=== PATIENT | male | born 1950 | race Caucasian/White ===

== ENCOUNTER 2022-08-15 09:38 | Outpatient (CLI) | payer MEDICARE, SELFPAY ==
--- NOTE | 2022-08-15 10:29 | ECG_ITS ---
Measurements Intervals [place] Rate: 99 P: 58 NC: 152 QRS: 1 QRSD: 91 T: 44 QT: 352 QTc: 452 Interpretive Statements SINUS RHYTHM BASELINE WANDER- AVF, V4 NORMAL ECG NO PREVIOUS ECG AVAILABLE FOR COMPARISON Electronically Signed On 08-15-2022 10:50:47 ASSOCIATE PROFESSOR OF VIOLIN by Krish Hedrick D.O.
[2022-08-15 10:43] LABS: Hematocrit 42.8 % (42.0-52.0); Hemoglobin 14.1 g/dL (14.0-18.0)
[2022-08-15 10:53] LABS: Urine Cotinine NEGATIVE
[2022-08-15 10:59] LABS: Albumin Level 4.5 g/dL (3.5-5.1); Estimated Glomerular Filt Rate > 60; Glucose 106 mg/dL (65-110)
[2022-08-16 13:37] LABS: Hemoglobin A1C 5.7 % (<5.7)
== END 2022-08-15 09:39 | disposition home or self-care (01) ==
PROVIDERS: PCP Family Medicine Adolescent Medicine; Visit Provider Orthopaedic Surgery
DX: M16.12 Unilateral primary osteoarthritis, left hip (principal); E78.2 Mixed hyperlipidemia
CPT/HCPCS: 80307; 82040; 82565; 82947; 83036; 85014; 85018; 93005

== ENCOUNTER 2022-09-19 13:31 | Outpatient (CLI) | payer MEDICARE, SELFPAY ==
[2022-09-19 15:06] LABS: Basophils Percent Auto 0.5 % (0.2-1.2); Eosinophils Absolute Auto 0.1 K/mm3 (0-0.3); Eosinophils Percent Auto 1.4 % (0-4.4); Hematocrit 42.1 % (42.0-52.0); Hemoglobin 14.3 g/dL (14.0-18.0); Immature Granulocyte Absolute 0.02 K/mm3 (0.00-0.031); Immature Granulocyte Percent A 0.3 % (0-0.5); Lymphocytes Percent Auto 15.8 % (18.3-44.2); Mean Corpuscular Hemoglobin 30.2 pg (26-34); Mean Platelet Volume 9.4 fl (7.4-10.4); Monocytes Absolute Auto 0.9 K/mm3 (0.1-0.6); Monocytes Percent Auto 14.5 % (2.6-8.5); Neutrophils Absolute Auto 4.3 K/mm3 (1.3-6.7); Neutrophils Percent Auto 67.5 % (45.5-73.1); Platelet Count Result 253 k/mm3 (150-375); Red Blood Count 4.73 M/mm3 (4.6-6.20); Red Cell Distribution Width 14.6 % (11.5-14.5); White Blood Count 6.3 K/mm3 (4.5-10.0)
== END 2022-09-19 13:32 | disposition home or self-care (01) ==
PROVIDERS: PCP Family Medicine Adolescent Medicine; Visit Provider Orthopaedic Surgery
DX: M16.12 Unilateral primary osteoarthritis, left hip (principal); Z01.818 Encounter for other preprocedural examination
CPT/HCPCS: 36415; 85025; 87081

== ENCOUNTER 2022-10-08 00:34 | Day surgery (SDC) | payer MEDICARE, SELFPAY ==
[2022-09-19 13:45] VITALS: BMI 27.9
--- NOTE | 2022-09-19 14:17 | PC.NURSE ---
Report to the Outpatient Waiting Room, entrance under the green pavilion located off [facility], at time _1000 on date _10/08/22 . Planned Procedure Time: __1200 . Time changes happen often and if your time is changed the preop area will call you the afternoon before. - You and your visitor will be asked to self-screen and do not enter if you have any COVID symptoms. - Only one visitor is requested with a max of two and NO children visitors are allowed at this time. - The patient visitor may be requested to leave or wait in car when not with patient due to distancing restrictions. - A mask is optional within the hospital at this time. Patients may have clear liquids (water, carbonated beverages, clear teas, apple juice) until 3 hours prior to surgery with a maximum of 20 ounces. - No food from midnight until time of surgery - Infants may have breast milk until 4 hours before surgery, infant formula 6 hours prior to surgery. - Children will be allowed to drink immediately following surgery. If applicable, please bring a bottle or sippy cup to assist with drinking. Juice, water, soda, and popsicles are readily available. For infants on formula, please bring formula the day of surgery. Pacifiers are allowed. Take the following medications with a SIP of water the morning of surgery: NONE DO NOT STOP ANY OF YOUR OTHER PRESCRIPTION MEDICATIONS PRIOR TO SURGERY ?EXCEPT THE FOLLOWING Medications to discontinue per physician __PT STATES HOLD ALL VITAMINS/SUPPLEMENTS 7 DAYS PRE OP PER DR DANIELS. LAST DOSE 09/30/22_ Please no make-up, nail vietnamese, hairspray, perfume, deodorant, or body powder the day of surgery. No jewelry (including any body piercings) or valuables the day of surgery, leave them at home. Please take a shower or bath the night before, or the morning of, surgery with an antibacterial soap. Wear comfortable, loose fitting clothing. Children are encouraged to wear pajamas. - Jewelry must be removed prior to entering the operating room. Rings and piercings that are not removed may be cut off. - The hospital will not accept responsibility for valuables. - Please leave all valuables, including medications, at home the day of surgery. If you are going home after surgery, a licensed racing car driver must drive you home. - NO public transportation without another adult if you receive anesthesia. - We recommend that an adult stay with you for 24 hours following discharge. - We also recommend that you do not drive, make important decision, drink alcoholic beverages, or take any drugs that were not prescribed by your health care provider for at least 24 hours after your discharge time. Follow any additional instructions given to you from your surgeon. If you or anyone in your household have experienced Covid symptoms in the past week, please notify your surgeon or the nurse liaison at the phone number below for possible testing. VERBAL AND WRITTEN instructions given to __PATIENT and asked if any additional questions and then verbalized understanding. Patient advised to call surgeon office or pre surgery nurse liaison [phone] if any additional questions.
[2022-09-19 14:36] VITALS: BP 142/88; PULSE 99; RESP 18; TEMP 36.7; O2SAT 97
[2022-10-08] VITALS (13 sets, daily range): BP systolic 108–150; BP diastolic 4–86; PULSE 93–118; RESP 10–20; TEMP 36.2–36.8; O2SAT 93–100
--- NOTE | ~2022-10-08 | XR_ITS ---
EXAMINATION: XR hip LT min 2V DATE: 10/08/2022 15:29 INDICATION: Total left hip arthroplasty. Postop. TECHNIQUE: 2 views of left hip were obtained. COMPARISON: Left hip radiographs 08/15/2022 FINDINGS: There is a total left hip arthroplasty in near-anatomic alignment. No fracture. There is ga s in the soft tissues, consistent with recent surgery. IMPRESSION: 1. Total left hip arthroplasty in near-anatomic alignment. Reviewed, dictated and finalized at location A.
[2022-10-08] MEDS: ACETAMINOPHEN 500 MG TABLET 1000 MG PO (10:18)
[2022-10-08] MEDS: LACTATED RINGERS 1,000 ML 30 ML IV CONT ×2 (10:30→15:15)
[2022-10-08] MEDS: TRANEXAMIC ACID 1,000MG/ISO100 1,000 MG/100 ML BAG 200 MG IVPB (10:30)
--- NOTE | 2022-10-08 11:46 | WPDANESEPPF ---
Anes - Initial Pre Proc Eval Procedure: Operation Date: 10/08/22 12:00 Proposed Procedures p Left Total Hip Arthroplasty - Galileo Maynard MD Date/Time: 10/08/22 11:46 Surgeon: Galileo Maynard MD Pre Op Diagnosis: primary OA left hip Patient Data Age: 72 Gender: M Height: 1.78 m Weight: 87.3 kg Last Vital Signs Temp 36.7 C 10/08/22 10:42 Pulse 95 10/08/22 10:42 Resp 16 10/08/22 10:42 BP 145/78 H 10/08/22 10:42 Pulse Ox 99 10/08/22 10:42 O2 Del Method Room Air 10/08/22 10:42 Allergies Allergy/AdvReac Type Severity Reaction Status Date / Time No Known Allergies Allergy Verified 09/19/22 13:46 Home Medications Medication Instructions Recorded Confirmed Type atorvastatin 20 mg tablet 20 mg PO DAILY #90 tabs 07/17/22 10/08/22 Rx cholecalciferol (vitamin D3) 25 25 mcg PO DAILY 07/17/22 10/08/22 History mcg (1,000 unit) capsule omega-3 fatty acids 1,000 mg 1,000 mg PO DAILY 07/17/22 10/08/22 History capsule vitamin C 45 mg-zinc citrate 3.75 1 tablet PO DAILY 07/17/22 10/08/22 History mg-elderberry 50 mg chewable tablet (Dogecoin) pyridoxine (vitamin B6) 200 mg 200 mg PO DAILY 09/19/22 10/08/22 History tablet Patient hx anesthesia problems: none Family hx anesthesia problems: none Results Review: All pre-operative results and documents have been reviewed as part of the pre-operative evaluation. [facility] Past Medical History Medical History History of prostate cancer Idiopathic peripheral neuropathy Mixed hyperlipidemia Unilateral primary osteoarthritis, left hip Surgical History Surgical History History of left inguinal hernia repair History of prostatectomy (2017) History of tooth extraction Family History Family History Father Bone cancer Mother Acute myocardial infarction Social History Social History Smoking status: Never smoker Additional smoking assessment comments: DENIES ANY FORM OF TOBACCO USE Alcohol intake: never Substance use: never Lack of Transportation: No Lack of Food: Never True Current Housing: I Have Housing Concerned About Future Housing: No Difficulty Paying Gas/Electric Bills: No Difficulty Paying for Meds: No Currently Unemployed: No Education: Master's Degree or Higher Difficulty w/ Childcare or Family Care: No Living arrangements: alone Spiritual care concerns: No Anes - Eval Final PreProcedure Day of Procedure 10/08/22 11:46 Patient weight: overweight Heart: regular rate and rhythm Lungs: clear to auscultation Airway: Mallampati scale class II Neurological: alert and oriented Last oral intake: >/= 8 hours ASA classification: III Emergent: no Anesthetic plan: proceed Anesthesia type and monitoring: general ETT and standard monitoring Results Review: All pre-operative results and documents have been reviewed as part of the pre-operative evaluation. Informed Consent: The patient's anesthetic plan and its attendant risks and benefits were discussed with the patient/family/POA. Questions were solicited and answers provided to the satisfaction of the patient/family/POA.
--- NOTE | 2022-10-08 12:06 | WPDHPUPDATE1 ---
History and Physical Update Update Date/Time: 10/08/22 12:06 History and Physical has been reviewed, including an updated exam of the patient. There are NO changes in the patient's condition. Risks, benefits, and alternatives have been discussed and questions answered. Patient agrees to proceed with procedure.
[2022-10-08] MEDS: ceFAZolin 2 GM/D5W 50 ML 2 GM/50 ML BAG IVPB ×2 (12:33→20:21)
--- NOTE | 2022-10-08 15:20 | W.PM.PROC2 ---
Procedure Note - Detailed Date of Procedure 10/08/22 Pre-op Diagnosis primary OA left hip Post-op Diagnosis Same Procedure Performed Left Total Hip Arthroplasty Surgeon Galileo Maynard MD Records Analysis Manager Nelsy Harper PA-C Anesthesia General Findings Preoperatively the hip was contracted, shortened. Moderate flexion and external rotation. Motion was poor. The false acetabular floor was exposed and the acetabular center was medialized anatomically. After trialing the cup was anteverted another 5? and secured with 2 screws. 10 degree elevated liner placed at the 7 o'clock position. Osteophytes were removed circumferentially around the anterior inferior and posterior acetabulum. Impinging bone at the anterior trochanter was also excised. Overall size and implant choices were consistent with the preoperative templating. Partial limp correction was obtained by slight lengthening. Description of Procedure The patient was given preoperative antibiotics. A general anesthetic was administered. The patient was carefully placed in the lateral decubitus position on the PEG board. The shoulders and hips were carefully positioned for component and leg length positioning reference. The hip was prepped and draped in the usual sterile fashion. A longitudinal incision was created over the posterior aspect of the greater trochanter. Careful dissection was brought down through the deep fascia with electrocautery. A minimally invasive optimized posterior approach to the hip was performed. The short external rotators and capsule were taken down in an L-shaped capsulotomy. The tissue was tagged for later repair using number 2 high strength suture. The femoral neck was measured and taken in situ. The femoral head was removed. The acetabulum was carefully exposed. The inferior capsule was released. The labrum was resected. The acetabulum was sequentially reamed to one over the intended cup size. The cup was impacted into position with excellent press-fit. Typical anatomic landmarks, including the bony contact points as well as the inferior transverse acetabular ligament were used to confirm cup positioning with preoperative templating. Attention was turned to the femur, which was carefully exposed. The hip was reamed and then broached sequentially. Excellent press-fit was obtained with the broach. The hip was trialed. Measurements were utilized, including the lesser trochanter as well as the center of the femoral head and the tip of the trochanter, and excellent assessment of the offset and leg lengths were confirmed. The real component was impacted into position. Trialing confirmed appropriate leg length and offset with soft tissue balancing as well apparent feel of the leg, both at the knee and the heel. Soft tissues were assessed using the the iliotibial band. Reduction of the posterior capsule and external rotators were also used as a secondary assessment. The hip was copiously irrigated with pulsatile lavage antibiotic solution periodically throughout the procedure. The real components were then assembled and reduced. The hip was stable throughout typical maneuvers, including extension, external rotation to 70 degrees, the position of sleep as well as flexion to 90 degrees with internal rotation past 45 degrees. The shake test confirmed stability without impingement. Osteophytes were removed as necessary. The short external rotators and capsule were repaired back to the posterior trochanter through drill holes. The deep fascia was repaired with running number 2 Quill suture, followed by 0 Stratafix suture and 2-0 Stratafix suture in the dermis. Steri-Strips were placed on the skin, followed by a sterile silver occlusive dressing. There were no complications. Meticulous hemostasis was maintained with the AquaMantys device. The patient was brought to the recovery room in stable condition. There were no complications. Physician creative assistantNelsy
--- NOTE | 2022-10-08 15:30 | SUR.PHASEI ---
1525 xrays left hip done
[2022-10-08] MEDS: fentaNYL CITRATE INJ (*CRX) 100 MCG/2 ML VIAL 25 MCG IV PUSH ×2 (16:00→16:09)
--- NOTE | 2022-10-08 16:50 | ADMGEN ---
This patient, Rishabh Vázquez, was admitted to Medical Room 244-. Patient/family oriented to hospital policies and general routines including ID bracelet, bed and alarms, visiting hours, pain management, procedures, bathroom and other care routines, personal items, smoking policy, room service/diet, and visiting hours. Information on how to activate the Rapid Response Team has been discussed. Patient/Family are encouraged to report perceived risks to care and to ask questions if they do not understand what they are told or what they should do.
[2022-10-08] MEDS: ASPIRIN 81 MG ENTERIC TABLET PO (17:32)
[2022-10-08] MEDS: MELOXICAM 7.5 MG TABLET PO (17:32)
[2022-10-08] MEDS: FAMOTIDINE 20 MG TABLET PO (20:21)
[2022-10-09] MEDS: oxyCODONE HCL (*CRX) 5 MG TAB IR PO ×3 (02:32→13:22)
[2022-10-09] MEDS: ceFAZolin 2 GM/D5W 50 ML 2 GM/50 ML BAG IVPB ×2 (04:05→11:35)
[2022-10-09 04:21] VITALS: BP 104/57; PULSE 105; RESP 20; TEMP 36.4; O2SAT 95
[2022-10-09 06:57] LABS: Basophils Percent Auto 0.1 % (0.2-1.2); Hematocrit 32.6 % (42.0-52.0); Immature Granulocyte Absolute 0.09 K/mm3 (0.00-0.031); Immature Granulocyte Percent A 0.7 % (0-0.5); Lymphocytes Absolute Auto 0.74 K/mm3 (0.9-3.2); Lymphocytes Percent Auto 5.5 % (18.3-44.2); Mean Corpuscular HGB Conc 33.7 g/dl (32-36); Mean Corpuscular Hemoglobin 30.6 pg (26-34); Mean Corpuscular Volume 90.6 fl (80-100); Mean Platelet Volume 9.8 fl (7.4-10.4); Monocytes Absolute Auto 1.8 K/mm3 (0.1-0.6); Monocytes Percent Auto 13.2 % (2.6-8.5); Neutrophils Absolute Auto 10.9 K/mm3 (1.3-6.7); Neutrophils Percent Auto 80.5 % (45.5-73.1); Platelet Count Result 218 k/mm3 (150-375); Red Cell Distribution Width 14.6 % (11.5-14.5); White Blood Count 13.5 K/mm3 (4.5-10.0)
[2022-10-09 07:09] LABS: Anion Gap 3 mmol/L (8-16); Blood Urea Nitrogen 11 mg/dL (9-20); Calcium 8.2 mg/dL (8.4-10.2); Carbon Dioxide 26 mmol/L (22-30); Chloride 107 mmol/L (98-107); Estimated CRCL calculation 84 ml/min; Estimated Glomerular Filt Rate > 60; Glucose 128 mg/dL (65-110); Potassium 3.9 mmol/L (3.4-5.0); Sodium 136 mmol/L (137-145)
[2022-10-09 07:40] VITALS: RESP 18; O2SAT 98
--- NOTE | 2022-10-09 08:19 | PM.DS ---
DS: Admitting Diagnosis Discharge Date 10/09/22 Admitting Diagnosis OA Left hip DS: Discharge Diagnosis Discharge Diagnosis Plan Postop day 1: Total hip arthroplasty. Patient tolerated procedure well. No complications. Pain manageable with pain medication. No numbness or tingling. We had a lengthy discussion regarding postoperative wound care, limitations, expectations, and exercises. Patient shows good understanding. Patient has had initial physical therapy and is tolerating it well. DVT prophylaxis: 81 mg baby aspirin b.i.d. for 14 days. Short frequent walks. Pain medication: Percocet. Meloxicam. Antibiotic: Keflex. Patient has followup appointment with Dr. Maynard in 3 weeks DS: Summary Hospital Course Reason for hospitalization: Total hip arthroplasty Hospital Course: Patient tolerated procedure well. Has had initial PT/OT. Status at Discharge Functional status at discharge: uses cane/walker Overall status at discharge: patient is progressing back to baseline Time Spent with Patient Time attestation: Total time spent providing and/or coordinating discharge services: Exam Narrative: 72 y/o Male. Resting comfortably in chair. Wearing compression socks bilaterally. Dressing dry and intact with no drainage. Moderate swelling. No ecchymosis. No erythema. No hematoma. Range of motion limited due to pain. Calf nontender. Thigh nontender. Neurologic status intact. No varicosities. Distal pulses palpable. DS: Data Data Completed and Pending Labs on day of discharge: Labs from last 24 hours 10/09/22 10/09/22 10/08/22 06:05 06:05 10:16 WBC 13.5 H RBC 3.60 L Hgb 11.0 L D Hct 32.6 L MCV 90.6 MCH 30.6 MCHC 33.7 RDW 14.6 H Plt Count 218 MPV 9.8 Immature Gran % (Auto) 0.7 H Neut % (Auto) 80.5 H Lymph % (Auto) 5.5 L [place] % (Auto) 13.2 H Eos % (Auto) 0.0 Baso % (Auto) 0.1 L Lymph # (Auto) 0.74 L [place] # (Auto) 1.8 H Eos # (Auto) 0.0 Baso # (Auto) 0.0 Abs Immat Gran (auto) 0.09 H Absolute Neuts (auto) 10.9 H Absolute Nucleated RBC 0.0 Nucleated RBC % 0.0 Sodium 136 L Potassium 3.9 Chloride 107 Carbon Dioxide 26 Anion Gap 3 L BUN 11 Creatinine 0.70 Estim Creat Clear Calc 84 Estimated GFR > 60 Glucose 128 H Calcium 8.2 L Blood Type A Positive Antibody Screen Negative Discharge Plan Discharge Patient Disposition: Home, Self-Care Discharge Instructions: See green instruction sheets Stand Alone Forms: General Discharge Instructions Follow-up/Referrals: Nelsy Harper PA [Physician Bilingual Patient Support Caseworker] - Discharge Medications: New meloxicam 15 mg tablet 15 mg PO DAILY Qty: 30 0RF Rx Instructions: Cut in half. Take 1/2 in morning and 1/2 at night. Take with food. Stop if stomach upset. aspirin 81 mg tablet,delayed release (DR/EC) 81 mg PO BID 14 Days Qty: 28 0RF oxycodone-acetaminophen 5-325 mg tablet 1 - 2 tablet PO Q4-6H MDD 6 PRN (Reason: pain) Qty: 30 0RF cephalexin 500 mg capsule 500 mg PO BID 10 Days Qty: 20 0RF Rx Instructions: Take twice a day for 10 days. Continued atorvastatin 20 mg tablet 20 mg PO DAILY Qty: 90 3RF pyridoxine (vitamin B6) 200 mg tablet 200 mg PO DAILY omega-3 fatty acids 1,000 mg capsule 1,000 mg PO DAILY Gamar 45-3.75-50 mg tablet,chewable 1 tablet PO DAILY cholecalciferol (vitamin D3) 25 mcg (1,000 unit) capsule 25 mcg PO DAILY
[2022-10-09] MEDS: ATORVASTATIN 20 MG TABLET PO (08:36)
[2022-10-09] MEDS: ASPIRIN 81 MG ENTERIC TABLET PO (08:37)
[2022-10-09] MEDS: PYRIDOXINE HCL 50 MG TABLET 200 MG PO (08:37)
[2022-10-09] MEDS: FAMOTIDINE 20 MG TABLET PO (08:37)
[2022-10-09] MEDS: MELOXICAM 7.5 MG TABLET PO (08:37)
[2022-10-09] MEDS: SENNA/DOCUSATE SODIUM TABLET 2 TAB PO (08:40)
[2022-10-09 10:12] VITALS: BP 105/67; PULSE 112; RESP 18; TEMP 36.8; O2SAT 96
== END 2022-10-09 14:15 | disposition home or self-care (01) ==
LOC: ANHSURGERY 15:23 → ANH2MED 16:45
PROVIDERS: Physician Assistant Surgical; PCP Family Medicine Adolescent Medicine; Visit Provider Orthopaedic Surgery
PROC: (CPT 27130; principal; 2022-10-08 12:00)
DX: M16.12 Unilateral primary osteoarthritis, left hip (principal); M25.552 Pain in left hip
CPT/HCPCS: 27130; 36415; 73502; 80048; 85025; 86850; 86900; 86901; 87081; 97110; 97161; 97165; 97530; 97535; A9270; C1713; C1776; J0131; J0171; J0690; J1100; J1170; J1885; J2250; J2270; J2370; J2405; J2704; J2795; J3010; J7120

== ENCOUNTER 2023-10-11 09:30 | Outpatient (CLI) | payer MEDICARE, SELFPAY ==
--- NOTE | ~2023-10-11 | XR_ITS ---
AP and lateral views of the left hip Clinical history: Postoperative Findings: No acute fracture or dislocation is seen. Left hip arthroplasty in place, without evidence of hardware complication. Soft tissues are unremarkable. Impression: No acute abnormality. Left hip arthroplasty. Reviewed, dictated and finalized at location . Impression: No acute abnormality. Left hip arthroplasty.
== END 2023-10-11 09:31 | disposition home or self-care (01) ==
PROVIDERS: PCP Family Medicine Adolescent Medicine; Visit Provider Orthopaedic Surgery
DX: Z96.642 Presence of left artificial hip joint (principal)
CPT/HCPCS: 73502

== ENCOUNTER 2024-10-23 00:25 | Day surgery (SDC) | payer MEDICARE, SELFPAY ==
[2024-10-16 11:09] VITALS: BMI 28.8
--- OUTSIDE RECORDS SUMMARY | 2024-10-23 00:27 | XMS_ITS | Continuity of Care Document ---
[facility] Organization [facility] Address [address] [address] [place] [address] Phone Care Team Providers Care City Engineer Name Role Phone Marino Martino MD Unavailable Unavailabl e Allergies, Adverse Reactions, Alerts Substance Reaction Status Criticality No Known Allergies Active No Inform ation Medications Medication Instructions Dosage Effective Dates (start - stop) Status Comments aspirin 81 mg tablet,delayed release take 1 tablet by oral route every day 81 MG - Active metformin 500 mg tablet take 1 tablet by oral route 2 times every day with morning and evening meals 500 MG - Active atorvastatin 20 mg tablet take 1 tablet by oral route every day 20 MG - Active acetylcarnitine HCl 400 mg-alpha lipoic acid 200 mg capsule - Active Herbal Medications/Supplements unknown take 1 capsule by oral route every day nerve renew - Active Procedures Procedure Date Adenoma(s), Other Neoplasm Detected Duri ng Screen Colonoscopy Flex; W/remov Les- 18 Level Iv-surg Path Gross/micro 18 Advance Directives Directive Yes / No Effective Date File Name No Information Encounters Encounter Description Practice Location Reason(s) For Visit Diagnoses Date Provider Providers Copied on Encounter [facility], [address] [address], [place], [place], [id number], [place] tel:[phone] [facility] No Information 4 Antony Pichardo. [address] [facility], [place], [place], [id number] , [place]. tel:[phone] [facility], [address] [address], [place], [place], [id number], [place] [phone] [facility] Polyp of transverse colon, unspecified typeEncounter for screening for malignant neoplasm of colonPersonal history of colonic polypsDvrtclos of lg int w/o perforation or abscess w/o bleedingBenign neoplasm of transverse colon Oct- 0201 8 Kerri Weber. [address] [facility], [facility] [address], [place], [place], [id number] , [place]. tel:[phone] Referring Provider: Nayla Zepeda MD, [address], [place], [address]. tel:[phone] Family History Family Member Type Diagnosis Age At Onset Father Problem (finding) malignant neoplasm of b one Mother Problem (finding) Pancreatitis Mother Problem (finding) Sister Problem (finding) Alive and well Father Problem (finding) Payers Payer name Insurance type Covered green party ID Authoriza tion(s) No Information Social History Type Description Quantity Date Captured Comments Sex Male Smoking Status No Information Chief Complaint And Reason For Visit No Information Reason For Referral Reason For Referral No Information History Of Present Illness Encounter Date Complaint History Of Prese nt Illness No Information Functional Status Date Functional Assessmen t No Information Instructions Date Instruction Additional Infor princess Colon Polyps Related to Polyp of transverse colon, unspecified type Diverticulosis/Diverticulitis Re lated to Polyp of transverse colon, unspecified type High Fiber Diet Related to Polyp of transverse colon, unspecified type Colon Cancer Prevention Related to Polyp of transverse colon, unspecified type Assessments Type Assessment Date No Information Patient Care Teams Name Effective Dates (start - stop) Status Members No Information
[2024-10-23 09:46] VITALS: BP 139/75; PULSE 83; RESP 16; TEMP 36.2; O2SAT 98
[2024-10-23] MEDS: LACTATED RINGERS 1,000 ML 150 ML IV CONT (09:54)
--- NOTE | 2024-10-23 10:06 | P.PNAN_ITS ---
Anes - Initial Pre Proc Eval Procedure: Operation Date: 10/23/24 11:00 Proposed Procedures p Colonoscopy - Noah Mendenhall MD Date/Time: 10/23/24 10:06 Surgeon: Noah Mendenhall MD Pre Op Diagnosis: Change in bowel habit, Hx of colon polyps Patient Data Age: 74 Gender: M Height: 1.78 m Weight: 88.5 kg Last Vital Signs Temp 36.2 C L 10/23/24 09:46 Pulse 83 10/23/24 09:46 Resp 16 10/23/24 09:46 BP 139/75 10/23/24 09:46 Pulse Ox 98 10/23/24 09:46 O2 Del Method Room Air 10/23/24 09:46 Allergies Allergy/AdvReac Type Severity Reaction Status Date / Time metformin AdvReac Mild Diarrhea Verified 10/23/24 09:45 Home Medications ?Medication ?Instructions ?Recorded ?Confirmed ?Type cholecalciferol (vitamin D3) 25 25 mcg PO DAILY 07/17/22 10/23/24 History mcg (1,000 unit) capsule vitamin C 45 mg-zinc citrate 3.75 1 tablet PO DAILY 07/17/22 10/23/24 History mg-elderberry 50 mg chewable tablet ([employer] (E[employer])) atorvastatin 20 mg tablet 20 mg PO DAILY #90 tabs 09/27/23 10/23/24 Rx PREVAGEN 1 tablet PO DAILY 10/16/24 10/23/24 History Patient hx anesthesia problems: none Family hx anesthesia problems: none Results Review: All pre-operative results and documents have been reviewed as part of the pre- operative evaluation. [facility] Past Medical History Medical History History of colon polyps Unilateral primary osteoarthritis, left hip Idiopathic peripheral neuropathy History of prostate cancer (2017) Mixed hyperlipidemia Surgical History Surgical History History of total left hip arthroplasty (10/08/22) History of tooth extraction History of left inguinal hernia repair History of prostatectomy (2016) Family History Family History Father Bone cancer Mother Acute myocardial infarction Social History Social History Smoking status: Never smoker Additional smoking assessment comments: DENIES ANY FORM OF TOBACCO USE Alcohol intake: current Substance use: never Substance use type: does not use Lack of Transportation: No Lack of Food: Never True Current Housing: I Have Housing Concerned About Future Housing: No Difficulty Paying Gas/Electric Bills: No Difficulty Paying for Meds: No Currently Unemployed: No Education: Master's Degree or Higher Difficulty w/ Childcare or Family Care: No Living arrangements: with family Spiritual care concerns: No Anes - Eval Final PreProcedure Day of Procedure 10/23/24 10:06 Patient weight: overweight Heart: regular rate and rhythm Lungs: clear to auscultation Airway: Mallampati scale class II Neurological: alert and oriented Last oral intake: >/= 8 hours ASA classification: III Emergent: no Anesthetic plan: proceed Anesthesia type and monitoring: general GIVS and standard monitoring Results Review: All pre-operative results and documents have been reviewed as part of the pre- operative evaluation. Informed Consent: The patient's anesthetic plan and its attendant risks and benefits were discussed with the patient/family/POA. Questions were solicited and answers provided to the satisfaction of the patient/family/POA.
--- NOTE | 2024-10-23 10:21 | P.HP_ITS ---
History of Present Illness History of Present Illness Consent: Risks, benefits, and alternatives have been discussed and questions answered. Patient agrees to proceed with procedure. Chief complaint: Change in bowel habit, Hx of colon polyps Narrative: Rishabh Vázquez is a 74 year old male here with colonoscopy, last one 2016 with polyp, also since June with change bowel habits, received antibiotic for possible colitis but still not back to baseline Review of Systems Review of Systems: All systems reviewed & are unremarkable except as noted in HPI and below PMFSH Past Medical History Medical History History of colon polyps Unilateral primary osteoarthritis, left hip Idiopathic peripheral neuropathy History of prostate cancer (2017) Mixed hyperlipidemia Surgical History Surgical History History of total left hip arthroplasty (10/08/22) History of tooth extraction History of left inguinal hernia repair History of prostatectomy (2016) Family History Family History Father Bone cancer Mother Acute myocardial infarction Social History Social History Smoking status: Never smoker Additional smoking assessment comments: DENIES ANY FORM OF TOBACCO USE Alcohol intake: current Substance use: never Substance use type: does not use Lack of Transportation: No Lack of Food: Never True Current Housing: I Have Housing Concerned About Future Housing: No Difficulty Paying Gas/Electric Bills: No Difficulty Paying for Meds: No Currently Unemployed: No Education: Master's Degree or Higher Difficulty w/ Childcare or Family Care: No Living arrangements: with family Spiritual care concerns: No Meds Home Medications and Allergies Home Medications ?Medication ?Instructions ?Recorded ?Confirmed ?Type cholecalciferol (vitamin D3) 25 25 mcg PO DAILY 07/17/22 10/23/24 History mcg (1,000 unit) capsule vitamin C 45 mg-zinc citrate 3.75 1 tablet PO DAILY 07/17/22 10/23/24 History mg-elderberry 50 mg chewable tablet ([employer] atorvastatin 20 mg tablet 20 mg PO DAILY #90 tabs 09/27/23 10/23/24 Rx PREVAGEN 1 tablet PO DAILY 10/16/24 10/23/24 History Allergies Allergy/AdvReac Type Severity Reaction Status Date / Time metformin AdvReac Mild Diarrhea Verified 10/23/24 09:45 Vital Signs Vital Signs - 24 hr 10/23/24 09:46 Temperature 97.2 F L Pulse Rate 83 Respiratory Rate 16 Blood Pressure 139/75 Pulse Oximetry 98 Oxygen Delivery Room Air Exam Const: General: comfortable and no acute distress HENMT: Face/Nose/Sinus: Normal nares present Eyes: General: appearance normal, both eyes and all related structures Neck: Neck: no JVD Resp: Auscultation: clear to auscultation bilaterally Cardio: Rate: regular rate Rhythm: regular rhythm GI: Inspection: non-distended GI Palp: Yes Soft to palpation Skin: General skin exam: normal color Neuro: Speech: normal speech Extrem: General: normal to inspection Psych: Mental Status: mental status grossly normal Assessment and Plan Assessment and plan (1) Change in bowel habits: Code(s): R19.4 - Change in bowel habit Status: Acute Assessment and Plan: colonoscopy, consider random bx (2) History of colon polyps: Code(s): Z86.0100 - Personal history of colon polyps, unspecified Status: Acute
[2024-10-23 10:32] VITALS: BP 101/65; PULSE 77; RESP 21; O2SAT 96
[2024-10-23 10:42] VITALS: BP 104/67; PULSE 73; RESP 17; O2SAT 96
[2024-10-23 10:52] VITALS: BP 132/87; PULSE 77; RESP 17; O2SAT 97
== END 2024-10-23 13:10 | disposition home or self-care (01) ==
PROVIDERS: PCP Family Medicine Adolescent Medicine; Referring Provider Nurse Practitioner Family; Visit Provider Internal Medicine Gastroenterology
PROC: 0DJD8ZZ Inspection of Lower Intestinal Tract, Via Natural or Artificial Opening Endoscopic (ICD-10-PCS; CPT 45378; principal; 2024-10-23 11:00)
DX: D12.2 Benign neoplasm of ascending colon (principal); K64.8 Other hemorrhoids; K57.30 Diverticulosis of large intestine without perforation or abscess without bleeding; M16.12 Unilateral primary osteoarthritis, left hip; E78.2 Mixed hyperlipidemia; G60.9 Hereditary and idiopathic neuropathy, unspecified; Z98.890 Other specified postprocedural states; Z86.0100 Personal history of colon polyps, unspecified; Z85.46 Personal history of malignant neoplasm of prostate; Z80.8 Family history of malignant neoplasm of other organs or systems; Z82.49 Family history of ischemic heart disease and other diseases of the circulatory system
CPT/HCPCS: 45385; 45380; 88305; J2704; J7120